=== PATIENT | female | born 1980 | race Asian ===

== ENCOUNTER 2020-05-17 18:25 | Emergency (ER) | payer OTHER ==
[2020-05-17 18:53] VITALS: BP 134/67; PULSE 104; TEMP 98.5; BMI 26.5
[2020-05-17] MEDS ORDERED: SODIUM CHLORIDE 0.9% 500 ML INFUS.BAG IV ONE (19:53)
[2020-05-17] MEDS ORDERED: FAMOTIDINE 20 MG/50 ML IVPB 20 MG/50 ML MG IVPB ONE ×2 (19:53→19:59)
[2020-05-17] MEDS ORDERED: methylPREDNISolone NA SUCC 125 MG/2 ML VIAL IVPUSH ONE (19:53)
[2020-05-17] MEDS ORDERED: methylPREDNISolone NA SUCC 125 MG/2 ML VIAL ONE (19:59)
--- NOTE | 2020-05-17 20:08 | PDOC ---
History of Present Illness - General Chief Complaint: Rash Stated Complaint: RASH Time Seen by Provider: 05/17/20 19:07 History Source: Patient Exam Limitations: No Limitations - History of Present Illness Initial Comments: 05/17/20 20:04 39-year-old female denies past medical history presents complaining of itchy rash to face, upper chest, upper back, bilateral lower extremities and upper extremities x3 weeks. Patient states initially she began having right ear itching and swelling, was evaluated at [facility] emergency department and was prescribed cephalexin for presumed cellulitis. After 3 to 4 days of taking this medication she developed a worsening rash throughout her body with itching. She stopped taking the cephalexin. 2 days ago she followed up with her PMD who prescribed clindamycin however patient does not know why she was given this medication. Presents to ED today for worsening itchy rash throughout the body with nausea. Denies shortness of breath, difficulty breathing, difficulty speaking, throat closing sensation, vomiting, diarrhea, chest pain, coughing or any other complaint. Patient states she has not taken any medication today. Reports denies use of new soaps, detergents, clothing or pets. ROS: as above PE: GENERAL: well-appearing, NAD, speaking full sentences HEAD: NCAT EYES: Pupils equal, round and reactive to light, sclera anicteric, conjunctiva clear ENT: pharynx: no erythema, no exudate, uvula midline NECK: supple CHEST: nontender RESP: clear, no w/r/r CARDIO: rrr, no m/g/r ABD: +BS, soft, nontender, non distended BACK: no midline spinal ttp, no CVAT EXTREMITIES: Normal range of motion, no edema NEUROLOGICAL: Normal speech, normal gait SKIN: Several small hives throughout scalp, face, upper chest, upper back, butto ck, bilateral upper extremity, bilateral lower extremities Is this a multiple visit Asthma Patient?: No Past History - Medical History Allergies/Adverse Reactions: Allergies Allergy/AdvReac Type Severity Reaction Status Date / Time No Known Allergies Allergy Verified 05/17/20 18:49 COPD: No - Reproductive History Is Patient Now?: No - Psycho-Social/Smoking History Smoking History: Never smoked - Substance Abuse Hx (Audit-C & DAST Scrn) How often the patient has a drink containing alcohol: Never Score: In Men: 4 or > Positive; In Women: 3 or > Positive: 0 Screen Result (Pos requires Nsg. Audit-10AR): Negative In the last yr the pt used illegal drug/Rx for NonMed reason: No Score: Yes response is considered Positive: 0 Screen Result (Positive result requires Nsg. DAST-10): Negative *Physical Exam - Vital Signs Last Vital Signs Temp Pulse Resp BP Pulse Ox 98.5 F 104 H 18 134/67 99 05/17/20 18:50 05/17/20 18:50 05/17/20 18:50 05/17/20 18:50 05/17/20 18:50 Medical Decision Making - Medical Decision Making 05/17/20 20:08 39-year-old female denies past medical history presents complaining of itchy rash to face, upper chest, upper back, bilateral lower extremities and upper extremities x3 weeks. Patient states initially she began having right ear itching and swelling, was evaluated at [facility] emergency department and was prescribed cephalexin for presumed cellulitis. After 3 to 4 days of taking this medication she developed a worsening rash throughout her body with itching. She stopped taking the cephalexin. 2 days ago she followed up with her PMD who prescribed clindamycin however patient does not know why she was given this medication. Presents to ED today for worsening itchy rash throughout the body with nausea. Denies shortness of breath, difficulty breathing, difficulty speaking, throat closing sensation, vomiting, diarrhea, chest pain, coughing or any other complaint. Patient states she has not taken any medication today. Reports denies use of new soaps, detergents, clothing or pets. Benadryl 50 mg IV Pepcid 20 mg IV Solu-Medrol 125 mg IV IV fluids Reassess 05/17/20 21:15 Rash has improved after medications Patient understands she is to take her Medrol Dosepak and Benadryl as directed Follow-up with dermatology and PMD next week Return precautions discussed Discharge - Discharge Information Problems reviewed: Yes Clinical Impression/Diagnosis: Rash Condition: Stable Disposition: HOME - Admission No - Follow up/Referral Referrals: Courtney Harris MD [Staff Physician] - - Patient Discharge Instructions Additional Instructions: Take Medrol Dosepak and Benadryl as prescribed by your doctor 2 days ago If you develop difficulty breathing, worsening rash, pain or any concerning symptoms return to the ED - Post Discharge Activity Work/Back to School Note: Back to Work
== END 2020-05-17 21:25 | disposition home or self-care (01) ==
LOC: JERFT 18:25
PROC: 3E033NZ Introduction of Analgesics, Hypnotics, Sedatives into Peripheral Vein, Percutaneous Approach (ICD-10-PCS; principal; 2020-05-17)
PROC: 3E033GC Introduction of Other Therapeutic Substance into Peripheral Vein, Percutaneous Approach (ICD-10-PCS; 2020-05-17)
DX: R21 Rash and other nonspecific skin eruption (principal)
CPT/HCPCS: 99284-25